=== PATIENT | female | born 1960 | race American Indian/Alaskan Native ===

== ENCOUNTER 2017-01-23 19:58 | Emergency (ER) | payer MEDICARE ==
[2017-01-23 20:32] LABS: Basophils % (Auto) 0.6 % (0.0-1.8); Eosinophils % (Auto) 3.3 % (0.0-4.3); Hematocrit 32.1 % (30.3-42.9); Hemoglobin 10.5 gm/dl (10.1-14.3); Mean Corpuscular HGB Conc 33 % (30-34); Mean Corpuscular Hemoglobin 30 pg (28-32); Mean Corpuscular Volume 91 fl (79-97); Platelet Count 313 K/mm3 (140-440); Red Blood Count 3.54 M/mm3 (3.65-5.03); Red Cell Distribution Width 14.7 % (13.2-15.2); White Blood Count 7.8 K/mm3 (4.5-11.0)
[2017-01-23 20:45] LABS: Chloride 102.5 mmol/L (98-107); Potassium 4.2 mmol/L (3.6-5.0)
[2017-01-23 21:04] LABS: Bacteria,Urine 1+ /HPF (Negative); Bilirubin,Urine NEG (Negative); Blood,Urine SM (Negative); Ketones,Urine NEG (Negative); Leukocyte Esterase,Urine LG (Negative); Mucus,Urine FEW /HPF; Nitrite,Urine NEG (Negative); Urobilinogen,Urine < 2.0 mg/dL (<2.0)
[2017-01-24] MEDS ORDERED: CEPHULAC PO ONE (08:13)
--- NOTE | 2017-01-24 08:17 | Emergency Department Report ---
HPI - General Chief Complaint: Urogenital-Female Time Seen by Provider: 01/24/17 08:05 - [facility] HPI: Room 26 The patient is a 56-year-old female presenting with a chief complaint of inability to urinate and constipation. Patient is currently over was Hospital for [facility] disorder. The patient states she came to the emergency department because she hadn't urinated in over 24 hours however she did urinate in the emergency department. Patient also admits to constipation for one week. Patient states she has not tried to take any medications for constipation. Patient admitted to nausea earlier but it has since resolved. Patient denied any vomiting. Location: [see above] Duration: [see above] Quality: Constipation Severity: Moderate Modifying factors: [see above] Context: [see above] Mode of transportation: [not driving] ED Past Medical Hx - Past Medical History Previous Medical History?: Yes Hx GERD: Yes Hx Renal Disease: Yes (renal insufficiency) Hx Psychiatric Treatment: Yes (SI, bipolar) Additional medical history: sicatic. bone marrow disease - Surgical History Past Surgical History?: Yes Additional Surgical History: av graft to both arms. hital hernia. tubes ligation - Family History Family history: no significant - Social History Smoking Status: Never Smoker Substance Use Type: None - Medications Home Medications: Home Medications Medication Instructions Recorded Confirmed Last Taken Type Docusate Sodium [Colace] 100 mg PO BID PRN #60 capsule 01/24/17 Unknown Rx Lactulose [Cephulac] 20 gm PO QDAY PRN #90 ml 01/24/17 Unknown Rx ED Review of Systems ROS: Stated complaint: UNABLE TO URINATE Other details as noted in HPI Comment: All other systems reviewed and negative Constitutional: denies: chills, fever Eyes: denies: eye pain, eye discharge, vision change ENT: denies: ear pain, throat pain Respiratory: denies: cough, shortness of breath, wheezing Cardiovascular: denies: chest pain, palpitations Endocrine: no symptoms reported Gastrointestinal: abdominal pain, nausea, constipation. denies: vomiting Genitourinary: denies: urgency, dysuria, discharge Musculoskeletal: denies: back pain, joint swelling, arthralgia Skin: denies: rash, lesions Neurological: denies: headache, weakness, paresthesias Psychiatric: denies: anxiety, depression Hematological/Lymphatic: denies: easy bleeding, easy bruising Physical Exam - Physical Exam Vital Signs: Vital Signs 01/23/17 01/24/17 01/24/17 20:06 01:18 07:31 Temperature 98.6 F 98.7 F Pulse Rate 65 58 L Respiratory 18 18 16 Rate Blood Pressure 160/101 207/83 Blood Pressure [Left] O2 Sat by Pulse 99 100 99 Oximetry 01/24/17 07:40 Temperature 98.1 F Pulse Rate 62 Respiratory 16 Rate Blood Pressure Blood Pressure 176/86 [Left] O2 Sat by Pulse 99 Oximetry Physical Exam: GENERAL: The patient is well-developed well-nourished female lying on stretcher not appearing to be in acute distress. [] HEENT: Normocephalic. Atraumatic. Extraocular motions are intact. Patient has moist mucous membranes. NECK: Supple. Trachea midline CHEST/LUNGS: Clear to auscultation. There is no respiratory distress noted. HEART/CARDIOVASCULAR: Regular. There is no tachycardia. There is no gallop rub or murmur. ABDOMEN: Abdomen is soft, nontender. Patient has normal bowel sounds. There is no abdominal distention. SKIN: There is no rash. There is no edema. There is no diaphoresis. NEURO: The patient is awake, alert, and oriented. The patient is cooperative. The patient has normal speech MUSCULOSKELETAL: There is no evidence of acute injury. ED Course Vital Signs 01/23/17 01/24/17 01/24/17 20:06 01:18 07:31 Temperature 98.6 F 98.7 F Pulse Rate 65 58 L Respiratory 18 18 16 Rate Blood Pressure 160/101 207/83 Blood Pressure [Left] O2 Sat by Pulse 99 100 99 Oximetry 01/24/17 07:40 Temperature 98.1 F Pulse Rate 62 Respiratory 16 Rate Blood Pressure Blood Pressure 176/86 [Left] O2 Sat by Pulse 99 Oximetry ED Medical Decision Making - Lab Data Result diagrams: 01/23/17 20:17 01/23/17 20:17 Laboratory Tests 01/23/17 01/23/17 01/23/17 20:17 20:17 20:30 WBC 7.8 RBC 3.54 L Hgb 10.5 Hct 32.1 MCV 91 MCH 30 MCHC 33 RDW 14.7 Plt Count 313 Lymph % (Auto) 33.3 [place] % (Auto) 9.5 H Eos % (Auto) 3.3 Baso % (Auto) 0.6 Lymph # 2.6 [place] # 0.7 Eos # 0.3 Baso # 0.0 Seg Neutrophils % 53.3 Seg Neutrophils # 4.2 Sodium 139 Potassium 4.2 Chloride 102.5 Carbon Dioxide 25 Anion Gap 16 BUN 21 H Creatinine 1.5 H Estimated GFR 36 BUN/Creatinine Ratio 14.00 Glucose 125 H Calcium 9.0 Urine Color Yellow Urine Turbidity Clear Urine pH 5.0 Ur Specific [place] 1.026 Urine Protein 30 mg/dl Urine Glucose (UA) Neg Urine Ketones Neg Urine Blood Sm Urine Nitrite Neg Urine Bilirubin Neg Urine Urobilinogen < 2.0 Ur Leukocyte Esterase Lg Urine WBC (Auto) 10.0 H Urine RBC (Auto) 3.0 U Epithel Cells (Auto) 21.0 H Urine Bacteria (Auto) 1+ Ur Transition Epith Cell 1 Urine Mucus Few - Radiology Data Radiology results: report reviewed (CT abdomen and pelvis), image reviewed (CT abdomen and pelvis) CT abdomen and pelvis (read by radiologist)-approximately 1.26 cm distal pancreatic body/tail hypodense lesion not excluded an incompletely characterized on this unenhanced exam. Please also correlate clinically with prior relevant imaging if available for further evaluation with dedicated pancreatic protocol CT or MRI utilizing IV contrasted frenal functional loss. Small right pleural effusion, distal esophageal prominent/thickening, constipation and possible slight small bowel ileus. - Differential Diagnosis constipation, urinary retention, dehydration Critical care attestation.: If time is entered above; I have spent that time in minutes in the direct care of this critically ill patient, excluding procedure time. ED Disposition Clinical Impression: Constipation Disposition: DC/TX PSY HOSP/PSY UNIT Is pt being admited?: No Does the pt Need Aspirin: No Condition: Stable Instructions: Constipation (ED) Additional Instructions: Your CAT scan revealed constipation but also a possible lesion of the pancreas. It is recommended that you follow-up with a web producer for further evaluation of the pancreas. You are being given a referral to a web producer. Return to the emergency department immediately should you develop worsening symptoms, fever, inability to tolerate food or liquid or any other concerns. Prescriptions: Docusate Sodium [Colace] 100 mg PO BID PRN #60 capsule PRN Reason: Constipation Lactulose [Cephulac] 20 gm PO QDAY PRN #90 ml PRN Reason: Constipation Referrals: PRIMARY CARE, [Primary Care Provider] - 3-5 Days DIANNA LUBIN MD [Staff Physician] - 3-5 Days (Dr. Lubin is a web producer. Please follow up with him for further evaluation of your pancreas and constipation) Time of Disposition: 09:38
--- NOTE | 2017-01-24 09:21 | Cat Scan Report ---
CT ABDOMEN AND PELVIS WITHOUT CONTRAST INDICATION: Oliguria, constipation. COMPARISON: None similar at this institution. FINDINGS: Noncontrast abdomen and pelvis CT performed. LUNG BASES: Small right pleural effusion. Minimal left basilar atelectasis. Anemia possible. Minimal pericardial thickening/fluid measuring 5 mm AP anteriorly, axial series 2, image 5. Nonspecific distal esophageal wall prominence/thickening, not excluded for gastroesophageal reflux and/or hiatal hernia, amongst others. ABDOMEN: Please note that sensitivity to detect small visceral lesions is limited due to the absence of intravenous or oral contrast. Grossly unremarkable unenhanced liver, spleen, gallbladder, adrenals, nonaneurysmal abdominal aorta, IVC and nonhydronephrotic kidneys. Some motion artifact. Approximately 1.3 cm distal pancreatic body/tail hypodense lesion not excluded as on axial series 2, image 17 measuring 15 Hounsfield units, though visually not clearly a simple cyst. Otherwise unremarkable pancreas without evidence of ductal dilatation. Nonopacified GI tract evaluation limited. Stomach decompressed with diffuse exaggerated wall thickness. Decompressed proximal and distal small bowel, though a small segment of proximal to mid small bowel in the midabdomen however air containing and slightly prominent at approximately 2 cm caliber, axial image 37, series 2. Moderate to large ascending and transverse colon stool. No ascites or definite significant adenopathy. Fat containing umbilical hernia with a transverse neck of 2 cm. PELVIS: Non-opacified urinary bladder, uterus, adnexa/ovaries and the rectosigmoid demonstrate normal CT appearance. Few small pelvic phleboliths. No free fluid or significant adenopathy. Mild L3-L4 and L4-5 disc narrowing. Moderate mid to lower lumbar facet arthropathy. Mild lower thoracic degenerative spurring. CONCLUSION: 1. Approximately 1.2 cm distal pancreatic body/tail hypodense lesion not excluded and incompletely characterized on this unenhanced exam, as described. Please also correlate clinically, with prior relevant imaging if available or further evaluate with dedicated pancreatic protocol CT or MRI utilizing IV contrast, if renal function allows. 2. Small right pleural effusion, distal esophageal prominence/thickening, constipation and possible slight small bowel ileus, as described. Please correlate. Thank you for the opportunity to participate in this patient's care.
[2017-01-24 10:16] VITALS: BP 160/87
== END 2017-01-24 10:17 ==
LOC: ED 19:58
DX: K59.00 Constipation, unspecified (principal); K21.9 Gastro-esophageal reflux disease without esophagitis; F31.9 Bipolar disorder, unspecified; R45.851 Suicidal ideations; Z88.8 Allergy status to other drugs, medicaments and biological substances
CPT/HCPCS: 36415; 74176; 80048; 81001; 85025

== ENCOUNTER 2017-02-03 19:57 | Emergency (ER) | payer MEDICARE ==
[2017-02-03 21:35] LABS: Eosinophils % (Auto) 5.5 % (0.0-4.3); Hematocrit 33.1 % (30.3-42.9); Hemoglobin 10.3 gm/dl (10.1-14.3); Mean Corpuscular HGB Conc 31 % (30-34); Mean Corpuscular Hemoglobin 29 pg (28-32); Mean Corpuscular Volume 94 fl (79-97); Platelet Count 259 K/mm3 (140-440); Red Blood Count 3.54 M/mm3 (3.65-5.03); White Blood Count 9.1 K/mm3 (4.5-11.0)
[2017-02-03 21:44] LABS: BUN/Creatinine Ratio 17.22; Calcium 9.4 mg/dL (8.4-10.2); Chloride 104.7 mmol/L (98-107); Potassium 4.4 mmol/L (3.6-5.0)
--- NOTE | 2017-02-04 03:13 | Emergency Department Report ---
HPI - General Chief Complaint: Psych Time Seen by Provider: 02/04/17 02:52 - HPI HPI: Room 26 The patient is a 56-year-old female presenting with a chief complaint of suicidal and homicidal ideation. The patient states she is staying at the [facility]. She states there is another resident there and a Chidi that sits in front of her and other females and appears to be playing with his genitalia under his clothing. The patient states this makes her want to kill him and herself. The patient was asked how she plan on killing herself she replies "a gun." He denies actively doing anything to try to harm herself recently. Location: Mental state Duration: 1 day Quality: Suicidal, homicidal Severity: Severe Modifying factors: [see above] Context: [see above] Mode of transportation: Unknown ED Past Medical Hx - Past Medical History Previous Medical History?: Yes Hx GERD: Yes Hx Renal Disease: Yes (renal insufficiency) Hx Psychiatric Treatment: Yes (SI, bipolar) Additional medical history: sicatica. bone marrow disease - Surgical History Past Surgical History?: Yes Additional Surgical History: av graft to both arms. hital hernia. tubes ligation - Family History Family history: no significant - Social History Smoking Status: Never Smoker Substance Use Type: None - Medications Home Medications: Home Medications Medication Instructions Recorded Confirmed Last Taken Type Docusate Sodium [Colace] 100 mg PO BID PRN #60 capsule 01/24/17 Unknown Rx Lactulose [Cephulac] 20 gm PO QDAY PRN #90 ml 01/24/17 Unknown Rx Sulfamethoxazole/Trimethoprim 1 each PO BID #6 tablet 02/04/17 Unknown Rx [Bactrim DS TAB] ED Review of Systems ROS: Stated complaint: MH EVAL Other details as noted in HPI Comment: All other systems reviewed and negative Constitutional: denies: chills, fever Eyes: denies: eye pain, eye discharge, vision change ENT: denies: ear pain, throat pain Respiratory: denies: cough, shortness of breath, wheezing Cardiovascular: denies: chest pain, palpitations Endocrine: no symptoms reported Gastrointestinal: denies: abdominal pain, nausea, diarrhea Genitourinary: denies: urgency, dysuria, discharge Musculoskeletal: denies: back pain, joint swelling, arthralgia Skin: denies: rash, lesions Neurological: denies: headache, weakness, paresthesias Psychiatric: homicidal thoughts, suicidal thoughts Hematological/Lymphatic: denies: easy bleeding, easy bruising Physical Exam - Physical Exam Vital Signs: Vital Signs 02/03/17 20:54 Temperature 98.3 F Pulse Rate 80 Respiratory 18 Rate Blood Pressure 160/108 O2 Sat by Pulse 100 Oximetry Physical Exam: GENERAL: The patient is well-developed well-nourished female sitting in chair not appearing to be in acute distress HEENT: Normocephalic. Atraumatic. Extraocular motions are intact. Patient has moist mucous membranes. NECK: Supple. Trachea midline CHEST/LUNGS: Clear to auscultation. There is no respiratory distress noted. HEART/CARDIOVASCULAR: Regular. There is no tachycardia. There is no gallop rub or murmur. ABDOMEN: Abdomen is soft, nontender. Patient has normal bowel sounds. There is no abdominal distention. SKIN: There is no rash. There is no edema. There is no diaphoresis. NEURO: The patient is awake, alert, and oriented. The patient is cooperative. The patient has normal speech MUSCULOSKELETAL: There is no evidence of acute injury. ED Course Vital Signs 02/03/17 20:54 Temperature 98.3 F Pulse Rate 80 Respiratory 18 Rate Blood Pressure 160/108 O2 Sat by Pulse 100 Oximetry ED Medical Decision Making - Lab Data Result diagrams: 02/03/17 21:18 02/03/17 21:18 Laboratory Tests 02/03/17 02/03/17 02/03/17 21:18 21:18 21:18 WBC 9.1 RBC 3.54 L Hgb 10.3 Hct 33.1 MCV 94 MCH 29 MCHC 31 RDW 15.0 Plt Count 259 Lymph % (Auto) 26.4 [place] % (Auto) 9.5 H Eos % (Auto) 5.5 H Baso % (Auto) 1.0 Lymph # 2.4 [place] # 0.9 H Eos # 0.5 H Baso # 0.1 Seg Neutrophils % 57.6 Seg Neutrophils # 5.3 Sodium 142 Potassium 4.4 Chloride 104.7 Carbon Dioxide 24 Anion Gap 18 BUN 31 H Creatinine 1.8 H Estimated GFR 35 BUN/Creatinine Ratio 17.22 Glucose 125 H Calcium 9.4 Urine Color Urine Turbidity Urine pH Ur Specific [place] Urine Protein Urine Glucose (UA) Urine Ketones Urine Blood Urine Nitrite Urine Bilirubin Urine Urobilinogen Ur Leukocyte Esterase Urine WBC (Auto) Urine RBC (Auto) U Epithel Cells (Auto) Urine Bacteria (Auto) Urine Mucus Urine HCG, Qual Salicylates Urine Opiates Screen Urine Methadone Screen Acetaminophen Ur Barbiturates Screen Ur Phencyclidine Scrn Ur Amphetamines Screen Urine Cocaine Screen U Marijuana (THC) Screen Plasma/Serum Alcohol < 0.01 02/03/17 02/03/17 02/04/17 21:18 21:18 04:11 WBC RBC Hgb Hct MCV MCH MCHC RDW Plt Count Lymph % (Auto) [place] % (Auto) Eos % (Auto) Baso % (Auto) Lymph # [place] # Eos # Baso # Seg Neutrophils % Seg Neutrophils # Sodium Potassium Chloride Carbon Dioxide Anion Gap BUN Creatinine Estimated GFR BUN/Creatinine Ratio Glucose Calcium Urine Color Yellow Urine Turbidity Clear Urine pH 5.0 Ur Specific [place] 1.017 Urine Protein <15 mg/dl Urine Glucose (UA) Neg Urine Ketones Neg Urine Blood Sm Urine Nitrite Pos Urine Bilirubin Neg Urine Urobilinogen < 2.0 Ur Leukocyte Esterase Mod Urine WBC (Auto) 20.0 H Urine RBC (Auto) 4.0 U Epithel Cells (Auto) 5.0 Urine Bacteria (Auto) 2+ Urine Mucus Few Urine HCG, Qual Negative Salicylates < 0.3 L Urine Opiates Screen Urine Methadone Screen Acetaminophen < 15.0 Ur Barbiturates Screen Ur Phencyclidine Scrn Ur Amphetamines Screen Urine Cocaine Screen U Marijuana (THC) Screen Plasma/Serum Alcohol 02/04/17 04:11 WBC RBC Hgb Hct MCV MCH MCHC RDW Plt Count Lymph % (Auto) [place] % (Auto) Eos % (Auto) Baso % (Auto) Lymph # [place] # Eos # Baso # Seg Neutrophils % Seg Neutrophils # Sodium Potassium Chloride Carbon Dioxide Anion Gap BUN Creatinine Estimated GFR BUN/Creatinine Ratio Glucose Calcium Urine Color Urine Turbidity Urine pH Ur Specific [place] Urine Protein Urine Glucose (UA) Urine Ketones Urine Blood Urine Nitrite Urine Bilirubin Urine Urobilinogen Ur Leukocyte Esterase Urine WBC (Auto) Urine RBC (Auto) U Epithel Cells (Auto) Urine Bacteria (Auto) Urine Mucus Urine HCG, Qual Salicylates Urine Opiates Screen Presumptive negative Urine Methadone Screen Presumptive negative Acetaminophen Ur Barbiturates Screen Presumptive negative Ur Phencyclidine Scrn Presumptive negative Ur Amphetamines Screen Presumptive negative Urine Cocaine Screen Presumptive negative U Marijuana (THC) Screen Presumptive negative Plasma/Serum Alcohol - Differential Diagnosis suicidal ideation, homicidal ideation Critical care attestation.: If time is entered above; I have spent that time in minutes in the direct care of this critically ill patient, excluding procedure time. ED Disposition Clinical Impression: Suicidal ideation, Homicidal ideation, UTI (urinary tract infection) Disposition: DC/TX PSY HOSP/PSY UNIT Is pt being admited?: No Does the pt Need Aspirin: No Condition: Serious Prescriptions: Sulfamethoxazole/Trimethoprim [Bactrim DS TAB] 1 each PO BID #6 tablet Referrals: TIEN BONILLA [Other] - 3-5 Days Time of Disposition: 03:14 (awaiting acceptance)
[2017-02-04 04:46] LABS: Urine Drugs of Abuse Note Disclamer
[2017-02-04 05:22] LABS: Bacteria,Urine 2+ /HPF (Negative); Bilirubin,Urine NEG (Negative); Blood,Urine SM (Negative); Ketones,Urine NEG (Negative); Leukocyte Esterase,Urine MOD (Negative); Mucus,Urine FEW /HPF; Nitrite,Urine POS (Negative); Protein,Urine <15 mg/dL mg/dL (Negative); Urobilinogen,Urine < 2.0 mg/dL (<2.0)
[2017-02-04] MEDS: BACTRIM DS PO SCH ×2 (09:55→21:55)
--- NOTE | 2017-02-04 11:53 | Consultation ---
History of Present Illness - Reason for Consult Consult date: 02/04/17 Reason for consult: Mental Health Evaluation Requesting physician: AALIYAH CAMARILLO - Chief Complaint Chief complaint: "I am all alone" - History of Present Psychiatric Illness The patient is a 56-year-old female presenting with a chief complaint of suicidal and homicidal ideation. Today patient is emotional, but cooperative during my assessment. She stated that a man name "Chidi" at the [facility] was exposing his genitalia to the females. She stated this made her angry. She stated that she told the staff and no one did anything about it. She stated that she asked the man to stop and he wouldn't. After so long of this behavior the patient told staff she would kill him if he came near her. After talking with patient about her psy hx, she stated that she is suicidal , because she have no reason to live. She stated that her family (5 children) do not want her around because of her mental illness (paranoid schizophrenia). She stated that she would cut her wrist with a knife or use a gun to kill herself. She stated that she have cut herself in the past, but denies SI's during that time. She stated that she see "spots" all the time especially at night. She denies sleep disturbance or a poor appetite. She denies recreational drug use or alcohol consumptions (etoh). Patient's daughter lives in [place], [place]. Per the patient, she was told that she cannot return to stay with her daughter in [place], [place]. Patient stated that she take Seroquel. Medications and Allergies Allergies Allergy/AdvReac Type Severity Reaction Status Date / Time iv potassium Allergy Unknown Uncoded 01/23/17 20:13 Active Meds: Active Medications Trimethoprim/Sulfamethoxazole (Bactrim Ds) 1 each PO Q12HR BOUCHRA Stop: 02/07/17 22:00 Last Admin: 02/04/17 09:55 Dose: 1 each Past psychiatric history - Past Medical History Past Medical History: other (Renal Insuffiency, bone marrow disease) - past Psychiatric treatment and history Psych: Schizophrenia psychiatric treatment history: Prior admission to inpatient setting at [facility] and a behavioral health facility in [place]. Denies a fam psy hx. - Social History Social history: other (Homeless) Mental Status Exam - Vital signs Last Vital Signs Temp 98.3 F 02/04/17 04:12 Pulse 80 02/04/17 04:12 Resp 16 02/04/17 10:56 BP 152/92 02/04/17 04:12 Pulse Ox 98 02/04/17 10:56 - Exam Narrative exam: ROS (+) psychosis MSE: Appearance: emotional, cooperative Behavior: poor eye contact Speech: regular rate and tone Mood: "I am not sure" Affect: congruent to mood Thought Process: linear Thought Content: denies AH's Motor Activity: ambulatory Cognition: a/ox 3 Insight: fair Judgment: limited Results Result Diagrams: 02/03/17 21:18 02/03/17 21:18 Abnormal lab results 02/03/17 02/03/17 02/03/17 Range/Units 21:18 21:18 21:18 RBC 3.54 L (3.65-5.03) M/mm3 [place] % (Auto) 9.5 H (0.0-7.3) % Eos % (Auto) 5.5 H (0.0-4.3) % [place] # 0.9 H (0.0-0.8) K/mm3 Eos # 0.5 H (0.0-0.4) K/mm3 BUN 31 H (7-17) mg/dL Creatinine 1.8 H (0.7-1.2) mg/dL Glucose 125 H (65-100) mg/dL Urine WBC (Auto) (0.0-6.0) /HPF Salicylates < 0.3 L (2.8-20.0) mg/dL 02/04/17 Range/Units 04:11 RBC (3.65-5.03) M/mm3 [place] % (Auto) (0.0-7.3) % Eos % (Auto) (0.0-4.3) % [place] # (0.0-0.8) K/mm3 Eos # (0.0-0.4) K/mm3 BUN (7-17) mg/dL Creatinine (0.7-1.2) mg/dL Glucose (65-100) mg/dL Urine WBC (Auto) 20.0 H (0.0-6.0) /HPF Salicylates (2.8-20.0) mg/dL All other labs normal. Assessment and Plan Assessment and plan: Impression: Acute Stress DO/Unspecified Mood DO with psychotic features. The patient is a 56-year-old female presenting with a chief complaint of suicidal and homicidal ideation. Today patient is emotional, but cooperative during my assessment. She stated that a man name "Chidi" at the [facility] was exposing his genitalia to the females. She stated this made her angry. She stated that she told the staff and no one did anything about it. She stated that she asked the man to stop and he wouldn't. After so long of this behavior the patient told staff she would kill him if he came near her. After talking with patient about her psy hx, she stated that she is suicidal, because she have no reason to live. Patient is homeless. DD: Schizophrenia, Schizoaffective DO Recommendation/Plan: Continue 1013 with placement to inpatient psy services. Start Seroquel 400 mg PO HS for psychosis/mood. Discussed possible metabolic side effects with patient reference Seroquel. Titrate Seroquel to 600 mg if tolerated by patient.
[2017-02-05] MEDS ORDERED: CATAPRES ONE (00:08)
[2017-02-05] MEDS ORDERED: RESTORIL PO SCH (00:15)
[2017-02-05] MEDS: CATAPRES PO SCH ×2 (01:00→10:24)
[2017-02-05] MEDS: BACTRIM DS PO SCH (10:23)
[2017-02-05 10:24] VITALS: BP 158/80
--- NOTE | 2017-02-05 14:37 | Progress Note ---
Subjective - Reason for Consult Consult date: 02/05/17 Reason for consult: psychiatric follow up - Chief Complaint Chief complaint: "I need a place to stay" The patient is a 56-year-old female presented initially with a chief complaint of suicidal and homicidal ideation. Today patient is emotional, but cooperative during my assessment. She complains of HI and no SI today. She stated she has no where to go. She reports she has not slept in 4 days. Mental Status Exam - Vital signs Last Vital Signs Temp 98.6 F 02/05/17 10:00 Pulse 65 02/05/17 10:24 Resp 18 02/05/17 12:58 BP 158/80 02/05/17 10:24 Pulse Ox 99 02/05/17 10:00 - Exam Narrative exam: ROS (+) psychosis MSE: Appearance: emotional, cooperative Behavior: poor eye contact Speech: regular rate and tone Mood: dysphoric Affect: congruent to mood Thought Process: linear Thought Content: denies AH. HI. No SI today Motor Activity: ambulatory, no abnormal movements Cognition: a/ox 3 Insight: fair Judgment: limited Assessment and Plan Impression: Acute Stress DO/Unspecified Mood DO with psychotic features. The patient is a 56-year-old female presented initially with a chief complaint of suicidal and homicidal ideation. Today patient is emotional, but cooperative during my assessment. Patient is homeless. DD: Schizophrenia, Schizoaffective DO Recommendation/Plan: Continue 1013 with placement to inpatient psy services. Continue Seroquel 400 mg PO HS for psychosis/mood. Titrate Seroquel to 600 mg if tolerated by patient.
[2017-02-05] MEDS ORDERED: NON-FORMULARY (Temazepam [Temazepam] 30 MG) PO SCH (22:00)
== END 2017-02-05 18:10 ==
LOC: EEVIPCON 19:57 → ED 19:57
DX: R45.851 Suicidal ideations (principal); R45.850 Homicidal ideations; N39.0 Urinary tract infection, site not specified; K21.9 Gastro-esophageal reflux disease without esophagitis; F31.9 Bipolar disorder, unspecified
CPT/HCPCS: 36415; 80048; 80307; 81001; 81025; 85025; 99285; G0480; 80320